=== PATIENT | female | born 1975 | race Caucasian/White ===

== ENCOUNTER 2016-12-17 16:36 | Emergency (ER) | payer OTHER ==
[~2016-12-17] VITALS: Ht 157.5 cm; Wt 79.4 kg
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
[2016-12-17] MEDS ORDERED: OLANZAPINE 10 MG VIAL IM ONE (16:43)
[2016-12-17] MEDS: OLANZAPINE 10 MG VIAL IM ONE (16:59)
[2016-12-17] MEDS ORDERED: HALOPERIDOL LACTATE INJ 5 MG/ML VIAL ONE (17:28)
[2016-12-17] MEDS ORDERED: LORAZEPAM INJ 2 MG/ML VIAL IVP ONE (17:30)
[2016-12-17] MEDS: HALOPERIDOL LACTATE INJ 5 MG/ML VIAL IV ONE (17:39)
--- NOTE | 2016-12-17 17:39 | NUR ---
haldol given as ordered. pt connected to monitor
--- NOTE | 2016-12-17 18:12 | NUR ---
urine sample sent to lab
[2016-12-17 18:16] LABS: APPEARANCE,URINE Clear (CLEAR); BILIRUBIN,URINE Negative (NEGATIVE); BLOOD, URINE Trace-intact Ery/uL (NEGATIVE); COLOR,URINE Yellow (YELLOW); KETONES,URINE Negative (NEGATIVE); LEUKOCYTE ESTERASE ,URINE Negative (NEGATIVE); NITRITE, URINE Negative (NEGATIVE); PH,URINE 5.5 (5.0-8.0); PROTEIN,URINE Trace mg/dl (NEGATIVE); UGLUCOSE Negative (NEGATIVE); UROBILINOGEN,URINE 0.2 EU/dL (0.2)
[2016-12-17 18:21] LABS: PREGNANCY TEST URINE QUAL NEGATIVE (NEGATIVE)
[2016-12-17 18:34] LABS: BACTERIA,URINE Rare /HPF (None Seen); RBC,URINE 0-2 /HPF (0-2); SQUAMOUS EPITHELIAL CELL,UR Few /HPF (None Seen); WBC,URINE 0-2 /HPF (0-3)
[2016-12-17] MEDS ORDERED: LORAZEPAM INJ 2 MG/ML VIAL ONE (19:26)
[2016-12-17] MEDS ORDERED: LORAZEPAM 1 MG TABLET ONE (19:38)
[2016-12-17] MEDS: LORAZEPAM INJ 2 MG/ML VIAL IV ONE (19:43)
[2016-12-17 19:45] VITALS: BP 120/60
--- NOTE | 2016-12-17 19:45 | NUR ---
Patient discharged to home in stable condition. Written and verbal after care instructions given. Patient AND FATHER verbalize understanding of instruction.patient was picked up by her father
[2016-12-17] MEDS: LORAZEPAM 1 MG TABLET PO ONE (19:48)
== END 2016-12-17 19:48 | disposition home or self-care (01) ==
LOC: ER 16:38
DX: F41.9 Anxiety disorder, unspecified (principal); R46.89 Other symptoms and signs involving appearance and behavior; F20.9 Schizophrenia, unspecified
CPT/HCPCS: 80305; 81000-TC; 84703-TC; A4606; J1630; J2060; J3490; Z7610